=== PATIENT | male | born 1995 | race African-American/Black ===

== ENCOUNTER 2019-08-03 01:33 | Emergency (ER) | payer SELFPAY ==
--- NOTE | 2019-08-03 02:10 | PDOC ---
Attending Attestation - Resident Resident Name: RoelSher - ED Attending Attestation I have performed the following: I have examined & evaluated the patient, The case was reviewed & discussed with the resident, I agree w/resident's findings & plan - HPI HPI: 08/03/19 02:22 see resident hpi - Physicial Exam PE: 08/03/19 02:22 agree with resident exam - Medical Decision Making 08/03/19 02:22 24-year-old male with intermittent chest pain and recent diagnosis of pneumonia Patient signed out AMA from recent admission due to family emergency He is requesting an unrelated HIV and chlamydia test due to recent exposure Plan for chest x-ray, EKG and testing as requested with discharge
[2019-08-03 02:29] VITALS: BP 110/63; PULSE 96; TEMP 98.1; BMI 19.8
--- NOTE | 2019-08-03 02:41 | PDOC ---
History of Present Illness - General Chief Complaint: Cold Symptoms Stated Complaint: COUGH,BACK PAIN Time Seen by Provider: 08/03/19 02:09 - History of Present Illness Initial Comments: 24 year old male with with no PMH presenting for cough x 3 weeks. Patient states that he has had relapsing-remitting cough that has become constant over the past 2 weeks and more productive of yellow sputum. Denies fevers, chills, nausea, vomiting, or diarrhea but does have some mild chest pain since his cough has started to worsen. He is originally from [place] and presented to that ER at [facility] where they wanted to pursue a CXR and blood work but he AMA'd because of his grandmother passing away here in [place]. He was also concerned about [place] and HIV infection because his sexual partner told him that she may have the infection at the end of a heated argument. 08/03/19 02:51 Past History - Past Medical History Allergies/Adverse Reactions: Allergies Allergy/AdvReac Type Severity Reaction Status Date / Time fish derived Allergy Verified 08/03/19 02:29 Home Medications: Ambulatory Orders levoFLOXacin [Levaquin] 750 mg PO DAILY 5 Days #5 tab 08/03/19 levoFLOXacin [Levaquin] 750 mg PO DAILY 5 Days #5 tab 08/03/19 - Psycho Social/Smoking Cessation Hx Smoking History: Current every day smoker Have you smoked in the past 12 months: Yes Number of Cigarettes Smoked Daily: 40 Information on smoking cessation initiated: No Hx Alcohol Use: Yes (Social) Drug/Substance Use Hx: No Review of Systems - Review of Systems Constitutional: No: Chills, Diaphoresis, Fever, Loss of Appetite, Malaise, Night Sweats HEENTM: No: Eye Pain, Blurred Vision Respiratory: Yes: Cough, Shortness of Breath, Productive cough. No: Orthopnea, SOB with Exertion, SOB at Rest, Stridor, Hemoptysis Cardiac (ROS): Yes: Chest Pain. No: Irregular Heart Rate, Lightheadedness, Palpitations, Syncope, Chest Tightness ABD/GI: No: Nausea, Poor Appetite, Poor Fluid Intake, Vomiting : No: Burning, Dysuria, Discharge, Frequency Musculoskeletal: No: Back Pain, Gout, Joint Pain, Joint Swelling Integumentary: No: Bruising, Change in Color, Pruritus, Rash Neurological: No: Headache, Numbness, Paresthesia Psychiatric: No: Anxiety, Depression Hematologic/Lymphatic: No: Anemia, Blood Clots, Easy Bleeding *Physical Exam - Vital Signs Last Vital Signs Temp Pulse Resp BP Pulse Ox 98.1 F 96 H 18 110/63 97 08/03/19 01:50 08/03/19 01:50 08/03/19 01:50 08/03/19 01:50 08/03/19 01:50 - Physical Exam General Appearance: Yes: Nourished, Appropriately Dressed. No: Apparent Distress HEENT: positive: EOMI, RADHA, Normal ENT Inspection, Normal Voice Neck: positive: Trachea midline, Normal Thyroid, Supple. negative: Tender, Rigid Respiratory/Chest: positive: Lungs Clear, Normal Breath Sounds, Other (mild cough). negative: Chest Tender, Respiratory Distress, Accessory Muscle Use Cardiovascular: positive: Regular Rhythm, Regular Rate Gastrointestinal/Abdominal: positive: Normal Bowel Sounds, Flat, Soft. negative : Tender Lymphatic: negative: Adenopathy, Tenderness Musculoskeletal: positive: Normal Inspection. negative: CVA Tenderness Extremity: positive: Normal Capillary Refill, Normal Inspection, Normal Range of Motion. negative: Tender Integumentary: positive: Normal Color, Dry, Warm Neurologic: positive: Fully Oriented, Alert, Normal Mood/Affect, Normal Response , Motor Strength 5/5 ED Treatment Course - RADIOLOGY Radiology Studies Ordered: Category Date Time Status CHEST X-RAY PORTABLE* [RAD] Stat Radiology 08/03/19 02:02 Ordered Medical Decision Making - Medical Decision Making 24 year old male with no PMH presenting with cough for the past few weeks and who is also concerned about STI testing. We offered lab work, cxr, and STi testing but patient did not want to wait. We agreed to treat him empirically with levaquin for presumed pneumonia and AMA him. 08/03/19 03:01 Discharge - Discharge Information Problems reviewed: Yes Clinical Impression/Diagnosis: Pneumonia Qualifiers: Pneumonia type: due to unspecified organism Laterality: unspecified laterality Lung location: unspecified part of lung Qualified Code(s): J18.9 - Pneumonia, unspecified organism Condition: Stable Disposition: AGAINST MEDICAL ADVICE - Admission No - Additional Discharge Information Prescriptions: levoFLOXacin [Levaquin] 750 mg PO DAILY 5 Days #5 tab levoFLOXacin [Levaquin] 750 mg PO DAILY 5 Days #5 tab - Follow up/Referral Referrals: [facility] [Provider Group] - Patient Discharge Instructions Additional Instructions: You are signing out against medical advice. Please use the antibiotics daily. Please see your doctor when you return home to [place]. Please return to the ED if you have new or worsening symptoms. - Post Discharge Activity Work/Back to School Note: Back to Work
--- NOTE | 2019-08-04 10:51 | EKG ---
Test Reason : Blood Pressure : / mmHG Vent. Rate : 070 BPM Atrial Rate : 070 BPM P-R Int : 132 ms QRS Dur : 086 ms QT Int : 352 ms P-R-T Axes : 071 084 067 degrees QTc Int : 380 ms NORMAL SINUS RHYTHM MINIMAL VOLTAGE CRITERIA FOR LVH, MAY BE NORMAL VARIANT NO PREVIOUS ECGS AVAILABLE Confirmed by GRETEL ESPINOZA MD ([id number]) on 08/04/2019 10:51:17 AM Referred By: Confirmed By:GRETEL ESPINOZA MD
== END 2019-08-03 02:45 | disposition left against medical advice (07) ==
LOC: JER 01:33
DX: J18.9 Pneumonia, unspecified organism (principal); F17.210 Nicotine dependence, cigarettes, uncomplicated; Z91.013 Allergy to seafood
CPT/HCPCS: 93005; 93010; 99282-25